=== PATIENT | female | born 1975 | race Caucasian/White ===

== ENCOUNTER 2022-04-12 15:19 | Inpatient (IN) ==
[2022-04-12] MEDS ORDERED: Al Hydrox/Mg Hydrox/Simet LIQ 30 ML UDC PO PRN (20:27)
[2022-04-13] MEDS: Nicotine PATCH 14 MG/24 HR PATCH TRANSDERM SCH (09:40)
[2022-04-13] MEDS: Vitamin THERAPEUTIC TAB PO SCH (09:40)
[2022-04-13] MEDS: OLANZapine 5 mg TAB *ODT PO SCH (22:11)
[2022-04-14 08:20] LABS: HDL Cholesterol 45.6 mg/dL
[2022-04-14] MEDS: Vitamin THERAPEUTIC TAB PO SCH (11:43)
[2022-04-14] MEDS: Nicotine PATCH 14 MG/24 HR PATCH TRANSDERM SCH (11:43)
[2022-04-14] MEDS: OLANZapine 5 mg TAB *ODT PO SCH (19:32)
[2022-04-15] MEDS: Vitamin THERAPEUTIC TAB PO SCH (08:56)
[2022-04-15] MEDS: Nicotine PATCH 14 MG/24 HR PATCH TRANSDERM SCH (08:56)
[2022-04-15] MEDS: OLANZapine 5 mg TAB *ODT PO SCH (19:59)
[2022-04-16] MEDS: Vitamin THERAPEUTIC TAB PO SCH (15:20)
[2022-04-16] MEDS: Nicotine PATCH 14 MG/24 HR PATCH TRANSDERM SCH (15:20)
[2022-04-16] MEDS: Nicotine GUM 2MG FRUIT FLAVOR PO PRN (20:11)
[2022-04-16] MEDS: OLANZapine 10 mg TAB*ODT PO SCH (22:47)
[2022-04-17] MEDS: Nicotine PATCH 14 MG/24 HR PATCH TRANSDERM SCH (11:04)
[2022-04-17] MEDS: Vitamin THERAPEUTIC TAB PO SCH (11:04)
[2022-04-17] MEDS: OLANZapine 10 mg TAB*ODT PO SCH (19:42)
[2022-04-17] MEDS: Nicotine GUM 2MG FRUIT FLAVOR PO PRN (19:43)
[2022-04-18] MEDS: Vitamin THERAPEUTIC TAB PO SCH (11:10)
[2022-04-18] MEDS: Nicotine PATCH 14 MG/24 HR PATCH TRANSDERM SCH (11:10)
[2022-04-18] MEDS: Nicotine GUM 2MG FRUIT FLAVOR PO PRN ×2 (15:39→17:56)
[2022-04-18] MEDS: OLANZapine 10 mg TAB*ODT PO SCH (20:13)
[2022-04-19] MEDS: Vitamin THERAPEUTIC TAB PO SCH (09:11)
[2022-04-19] MEDS: Nicotine PATCH 14 MG/24 HR PATCH TRANSDERM SCH (09:11)
[2022-04-19] MEDS: Nicotine GUM 2MG FRUIT FLAVOR PO PRN ×2 (12:39→20:14)
[2022-04-19] MEDS: OLANZapine 10 mg TAB*ODT PO SCH (20:13)
[2022-04-20] MEDS: Nicotine PATCH 14 MG/24 HR PATCH TRANSDERM SCH (07:23)
[2022-04-20] MEDS: Vitamin THERAPEUTIC TAB PO SCH (07:23)
[2022-04-20 08:18] VITALS: BP 113/69
== END 2022-04-20 14:55 | disposition home or self-care (01) | DRG 753 ==
LOC: ED 15:19 → EDHOLD 20:24 → BSU 20:37
PROVIDERS: ADMIT Psychiatry & Neurology Psychiatry; ATTEND Psychiatry & Neurology Psychiatry